=== PATIENT | male | born 1990 | race Caucasian/White ===

== ENCOUNTER 2017-09-17 08:46 | Emergency (ER) | payer OTHER ==
[~2017-09-17] VITALS: Ht 180.3 cm; Wt 88.0 kg
[2017-09-17 08:52] VITALS: BP 141/86; PULSE 80; RESP 16; TEMP 98; O2SAT 100
[2017-09-17] MEDS ORDERED: ASPI1TAB93 (09:01)
--- NOTE | 2017-09-17 09:24 | PD ---
HPI Chief Complaint: Chest Pain Time Seen by Provider: 09:16 Travel History International Travel<30 days: No Contact w/Intl Traveler<30days: No Traveled to known affect area: No History of Present Illness HPI 27-year-old male patient without significant past medical issues, presents to the ER currently for chest wall left-sided pains that started after he stretched this morning. He states that at rest, it is a 1 out of 10, but when he sits up a certain position and moves his left arm, it goes up to about 6 out of 10. He denies any shortness of breath, nausea, vomiting, fevers, or other symptoms. He denies any previous symptoms. Modifying Factors: Worsens with movement and positional Associated Signs & Symptoms: Left chest wall pain Risk Factors: None PFSH Past Medical History Anxiety: Yes Diminished Hearing: No Tetanus Vaccination: Unknown Influenza Vaccination: No (not UTD) Past Surgical History Tonsillectomy: Yes Social History Alcohol Use: No Tobacco Use: No (Smoked "years ago") Substance Use: No Allergies-Medications (Allergen,Severity, Reaction): Coded Allergies: No Known Allergies (Unverified , 09/17/17) Reported Meds & Prescriptions Reported Meds & Active Scripts Active Reported Excedrin Extra Strength (Uxotbgm-Wygourkwwlanj-Hjoynept) 250 Mg-250 Mg-65 Mg Tab Review of Systems Except as stated in HPI: all other systems reviewed are Neg Physical Exam Narrative GENERAL: Well-developed young male patient currently in mild distress. Awake and oriented 3. SKIN: Focused skin assessment warm/dry. HEAD: Atraumatic. Normocephalic. EYES: Pupils equal and round. No scleral icterus. No injection or drainage. ENT: No nasal bleeding or discharge. Mucous membranes pink and moist. NECK: Trachea midline. No JVD. CARDIOVASCULAR: Regular rate and rhythm. No murmur appreciated. Pulses are present and equal bilaterally. CHEST: Mildly tender palpation in the left lower chest wall anteriorly without deformity or crepitance. No retractions or use of accessory muscles. RESPIRATORY: No accessory muscle use. Clear to auscultation. Breath sounds equal bilaterally. GASTROINTESTINAL: Abdomen soft, non-tender, nondistended. Hepatic and splenic margins not palpable. MUSCULOSKELETAL: No obvious deformities. No clubbing. No cyanosis. No edema. NEUROLOGICAL: Awake and alert. No obvious cranial nerve deficits. Motor grossly within normal limits. Normal speech. PSYCHIATRIC: Appropriate mood and affect; insight and judgment normal. Data Data Last Documented VS Vital Signs Date Time Temp Pulse Resp B/P (MAP) Pulse Ox O2 Delivery O2 Flow Rate FiO2 09/17/17 10:01 78 99 Room Air 09/17/17 08:52 98.0 16 141/86 (104) Orders Orders Electrocardiogram (09/17/17 ) Chest, Single Ap (09/17/17 09:16) MDM Medical Decision Making Medical Screen Exam Complete: Yes Emergency Medical Condition: Yes Medical Record Reviewed: Yes Interpretation(s) Last 24 hours Impressions Chest X-Ray 09/17/1716 Signed Impressions: Service Date/Time: Sunday, September 17, 2017 09:21 - CONCLUSION: No acute cardiopulmonary abnormality is identified. Isaias Ponce MD Differential Diagnosis Left chest wall pains: Costochondritis versus muscle strain versus rib fractures versus pulmonary injuries Narrative Course Chest x-ray is unremarkable. Vital signs are stable with 100% saturations. Considering the story, it is more indicative of a chest wall muscle strain. My plan would be to give him symptomatic relief or pain and follow-up as needed with primary care doctor. Return for any worsening in symptoms as needed. The plan has been discussed with the patient and he states understanding. Diagnosis Primary Impression: Chest wall muscle strain Med/Other Pt SpecificInfo: Prescription(s) given Scripts Ibuprofen (Motrin Ib) 200 Mg Tablet 600 MG PO QID Y for PAIN SCALE 1 TO 10, #21 Prov: Harshal Luis MD 09/17/17 Disposition: 01 DISCHARGE HOME Condition: Stable Harshal Luis MD Sep 17, 2017 09:23
--- NOTE | 2017-09-17 09:26 | EKG ---
Date Performed: 09/17/2017 Time Performed: 08:58:50 PTAGE: 27 years EKG: Sinus rhythm WITH MARKED SINUS ARRHYTHMIA BORDERLINE ECG NO PREVIOUS TRACING DOCTOR: Srikanth Tena Interpretating Date/Time 09/17/2017 09:25:49
--- NOTE | 2017-09-17 09:40 | RADRPT ---
EXAM DATE/TIME: 09/17/2017 09:21 [facility] COMPARISON: No previous studies available for comparison. INDICATIONS : Left lateral chest pain. MEDICAL HISTORY : None. SURGICAL HISTORY : None. ENCOUNTER: Initial ACUITY: 1 day PAIN SCORE: 4/10 LOCATION: Left lateral chest FINDINGS: Portable AP view of the chest demonstrates a normal-sized cardiac silhouette. No effusion, consolidat ion, or pneumothorax is visualized. The bones and soft tissues demonstrate no acute abnormality. CONCLUSION: No acute cardiopulmonary abnormality is identified. Isaias Ponce MD on September 17, 2017 at 9:27 Board Certified Radiologist. This report was verified electronically.
[2017-09-17] MEDS ORDERED: IBUP-1129 PO (10:04)
== END 2017-09-17 10:20 | disposition home or self-care (01) ==
LOC: PHEFT 08:46
DX: S29.011A Strain of muscle and tendon of front wall of thorax, initial encounter (principal); R94.31 Abnormal electrocardiogram [ECG] [EKG]; X58.XXXA Exposure to other specified factors, initial encounter
CPT/HCPCS: 71010; 93005; 99284

== ENCOUNTER 2017-12-03 05:00 | Emergency (ER) | payer OTHER ==
[~2017-12-03] VITALS: Ht 180.3 cm; Wt 89.5 kg
[~2017-12-03 05:00] MED LIST: ASPI1TAB93; IBUP-1129 PO
[2017-12-03 05:07] VITALS: BP 125/83; PULSE 80; RESP 18; TEMP 97.7; O2SAT 100
[2017-12-03] MEDS ORDERED: ALPR.25 PO (05:25)
--- NOTE | 2017-12-03 05:55 | PD ---
HPI . Flulike symptoms Chief Complaint: Dizziness Time Seen by Provider: 05:38 Travel History International Travel<30 days: No Contact w/Intl Traveler<30days: No Traveled to known affect area: No History of Present Illness HPI This patient presents with a 3 day history of flulike symptoms consisting of fever, dizziness, nausea, shortness of breath and shivering. He has 2 children who have been ill with similar illnesses. He states that he presents to us now because he awakened in the early hours of the morning with nausea, shivering and feeling like there was something stuck in his throat. He states that his flulike symptoms are improving. He states that his dizziness is exacerbated by standing. PFSH Past Medical History Anxiety: Yes Diminished Hearing: No Tetanus Vaccination: Unknown Influenza Vaccination: No Past Surgical History Tonsillectomy: Yes Social History Alcohol Use: No Tobacco Use: No (Smoked "years ago") Substance Use: No Allergies-Medications (Allergen,Severity, Reaction): Coded Allergies: No Known Allergies (Unverified , 12/03/17) Reported Meds & Prescriptions Reported Meds & Active Scripts Active Reported Xanax (Alprazolam) 0.25 Mg Tab 0.25 Mg PO Q8H PRN Review of Systems Except as stated in HPI: all other systems reviewed are Neg General / Constitutional: Positive: Fever, Chills HENT: Positive: Lightheadedness Respiratory: Positive: Shortness of Breath Gastrointestinal: Positive: Nausea Physical Exam Narrative GENERAL: Awake and alert and in no acute distress. SKIN: Warm and dry. Good color and turgor. HEAD: Normocephalic/atraumatic. EYES: Pupils are equal. Extraocular movements are intact. ENT: Oropharynx is moist and without erythema. NECK: Normal range of motion. Supple. No cervical lymphadenopathy. CARDIOVASCULAR: Regular rate and rhythm. Heart sounds are normal. RESPIRATORY: Nonlabored respirations. Lungs are clear with full throughout. ABDOMEN: Soft and nontender MUSCULOSKELETAL: Atraumatic. NEUROLOGICAL: Nonfocal. PSYCHIATRIC: Appropriate mood and affect. Data Data Last Documented VS Vital Signs Date Time Temp Pulse Resp B/P (MAP) Pulse Ox O2 Delivery O2 Flow Rate FiO2 12/03/17 05:26 Room Air 12/03/17 05:07 97.7 80 125/83 (97) 100 Orders Orders Sodium Chlor 0.9% 1000 Ml Inj (Ns 1000 M (12/03/17 06:00) Ondansetron Inj (Zofran Inj) (12/03/17 06:00) MDM Medical Decision Making Medical Screen Exam Complete: Yes Emergency Medical Condition: Yes Differential Diagnosis Differential diagnosis of weakness includes but is not limited to infection, CVA , electrolyte disturbance, renal failure, hypoglycemia, UTI, ACS, acute blood loss Narrative Course This patient presents complaining with nausea, lightheadedness, shivering, shortness of breath. He had 2 of his children have had flulike illnesses for the last 3 days. He looks well. I will treated with a liter of fluid and some Zofran. The patient reports that he is no longer dizzy and that his nausea has resolved. He will be discharged after this liter of fluid. Diagnosis Primary Impression: Viral syndrome Additional Impression: Nausea Patient Instructions: Acute Nausea and Vomiting (DC), General Instructions, Viral Syndrome (DC) Med/Other Pt SpecificInfo: Prescription(s) given Scripts Ondansetron (Zofran) 4 Mg Tab 4 MG PO Q6HR Y for NAUSEA OR VOMITING, #6 TAB 0 Refills Prov: Miriam Lowery MD 12/03/17 Disposition: 01 DISCHARGE HOME Condition: Stable Miriam Lowery MD Dec 03, 2017 05:55
[2017-12-03] MEDS ORDERED: SODIUM CHLOR 0.9% 1000 ML INJ 1,000 ML IV ONE (06:00)
[2017-12-03] MEDS ORDERED: ONDANSETRON HCL 4 MG/2 ML VIAL IV PUSH ONE (06:00)
[2017-12-03] MEDS ORDERED: ZOFR4TAB PO (06:30)
[2017-12-03 06:33] VITALS: BP 121/78; PULSE 78; RESP 18; O2SAT 99
== END 2017-12-03 06:50 | disposition home or self-care (01) ==
LOC: PHED 05:00
DX: B34.9 Viral infection, unspecified (principal); R11.0 Nausea; Z87.891 Personal history of nicotine dependence
CPT/HCPCS: 96361; 96374; 99284; J2405; J7030